=== PATIENT | male | born 1935 | race Caucasian/White ===

== ENCOUNTER 2016-12-11 14:31 | Emergency (ER) | payer MEDICARE, BC ==
--- NOTE | 2016-12-11 15:45 | EDM.PDOC ---
ED HPI Trauma - General Chief Complaint: Trauma Stated Complaint: FELL Time Seen by Provider: 12/11/16 14:55 Source: Reports: Patient, EMS History Limitations: Reports: No limitations - History of Present Illness INITIAL COMMENTS - FREE TEXT/NARRATIVE: 81-year-old male stumbled out of his pickup onto the ground and hit the back of his head. He woke up on the floor the garage, definitely losing consciousness for a short period of time. He has swelling on the back of his head but no headache, denies visual disturbance but he did vomit once. EMS was called and concerned about very small pupils but symmetric, neurologically he was intact and visiting in his vitals were stable. Occurred When: just prior to arrival Occurred Where: home Method of Injury: direct blow Severity: mild Pain/Injury Location: Reports: head Consciousness: Reports: unsure (Believe he lost consciousness for at least a couple minutes) Associated Symptoms: Reports: other (Vomited once). Denies: neck pain Allergies/ADRs: Allergies No Known Allergies Allergy (Verified 10/06/16 16:26) Home Medications: Ambulatory Orders Finasteride 5 mg PO DAILY 08/05/16 [Confirmed 12/11/16] Metoprolol Succinate [Toprol XL 100mg] 100 mg PO BID 08/05/16 [Confirmed ] Simvastatin [Zocor] 20 mg PO BEDTIME 08/05/16 [Confirmed 12/11/16] Tamsulosin [Flomax] 0.4 mg PO DAILY 08/05/16 [Confirmed 12/11/16] Warfarin Sodium 5 mg PO DAILY 08/05/16 [Confirmed 12/11/16] amLODIPine Besylate [Amlodipine Besylate] 5 mg PO DAILY 08/05/16 [Confirmed ] metFORMIN [Glucophage XR] 500 mg PO DAILY 08/05/16 [Confirmed 12/11/16] Tolterodine Tartrate [Detrol LA] 4 mg PO DAILY 08/22/16 [Confirmed 12/11/16] Warfarin [Coumadin] 2.5 mg PO DAILY 08/22/16 [Confirmed 12/11/16] Losartan [Cozaar] 100 mg PO DAILY 09/29/16 [Confirmed 12/11/16] Spironolactone 50 mg PO DAILY 10/03/16 [Confirmed 12/11/16] Past Medical History HEENT History: Reports: Hard of hearing, Impaired vision Cardiovascular History: Reports: High cholesterol, Hypertension Respiratory History: Reports: None Gastrointestinal History: Reports: Cirrhosis, Other (see below) Other Gastrointestinal History: recent ascites Musculoskeletal History: Reports: Amputation Neurological History: Reports: Concussion, CVA Endocrine/Metabolic History: Reports: Diabetes, type II, Obesity/BMI 30+ Oncologic (Cancer) History: Reports: Other (see below) Other Oncologic History: oral Dermatologic History: Reports: Other (see below) Other Dermatologic History: skin ca - Infectious Disease History Infectious Disease History: Reports: Chicken pox, Measles, Mumps - Past Surgical History Head Surgeries/Procedures: Reports: None HEENT Surgical History: Reports: Adenoidectomy, Tonsillectomy, Other (see below) Other HEENT Surgeries/Procedures: growth off lower lip ? CA Respiratory Surgical History: Reports: Lung Biopsies GI Surgical History: Reports: Abdominal paracentesis, Colonoscopy Musculoskeletal Surgical History: Reports: Amputation Other Musculoskeletal Surgeries/Procedures:: toes right foot Dermatological Surgical History: Reports: Skin biopsy Social & Family History - Family History Endocrine/Metabolic: Reports: Diabetes, type II - Tobacco Use Smoking Status *Q: Never Smoker Second Hand Smoke Exposure: No - Caffeine Use Caffeine Use: Reports: Coffee Other Caffeine Use: 1cup a day Caffeine Use Comment: 1 cup per day - Alcohol Use Days Per Week of Alcohol Use: 2 Number of Drinks Per Day: 3 Total Drinks Per Week: 6 - Recreational Drug Use Recreational Drug Use: No Review of Systems - Review of Systems Review Of Systems: See Below Constitutional: Denies: fever Ears: Reports: no symptoms Respiratory: Reports: no symptoms Cardiovascular: Reports: no symptoms Musculoskeletal: Reports: no symptoms Neurological: Reports: dizziness (Patient has been treated for persistent dizziness with some recent medication adjustments) Psychiatric: Reports: no symptoms ED EXAM, TRAUMA (MAJOR/MULTI) - Physical Exam Exam: See Below Exam Limited By: No limitations General Appearance: alert, no apparent distress Head: other (Patient has a hematoma on the posterior occipital aspect of the scalp, no active bleeding or laceration. EOMs are intact and neck is nontender) Eyes: bilateral eye: EOMI, PERRL Neck: non-tender Respiratory/Chest: no respiratory distress Extremities: no evidence of injury Neurologic: normal mood/affect, oriented x 3 Course - Vital Signs Last Recorded V/S: Last Vital Signs Temp 98.1 F 12/11/16 15:00 Pulse 113 H 12/11/16 15:36 Resp 14 12/11/16 15:00 BP 92/74 12/11/16 15:36 Pulse Ox 96 12/11/16 14:52 - Orders/Labs/Meds Orders: Active Orders 24 hr Category Date Time Status Head wo Cont [CT] Stat Exams 12/11/16 14:36 Taken - Re-Assessments/Exams Free Text/Narrative Re-Assessment/Exam: 12/11/16 15:[address] of the head was obtained due to the patient's age, loss of consciousness and Coumadin treatment. A superficial hematoma were shown but no other acute findings. The patient remained asymptomatic, talkative and had no further nausea or other complaints. He was discharged with a diagnosis of the scalp hematoma, a closed head injury with concussion. Departure - Departure Time of Disposition: 16:04 Disposition: Home, Self-Care 01 Condition: good Clinical Impression: Traumatic hematoma of scalp Qualifiers: Encounter type: initial encounter Qualified Code(s): S00.03XA - Contusion of scalp, initial encounter Concussion Qualifiers: Encounter type: initial encounter Loss of consciousness presence/duration: with LOC of 30 min or less Qualified Code(s): S06.0X1A - Concussion with loss of consciousness of 30 minutes or less, initial encounter Instructions: Concussion, Adult, Concussion, Adult, [id number] Referrals: PCP,None [Primary Care Provider] - Forms: ED Department Discharge Care Plan Goals: Try to stay active, ice to any sore areas for the next 48 hours may help and Tylenol or naproxen such as Aleve will help the soreness for the next few days. Recheck in 4 or 5 days if you do not feel you are healing satisfactorily. Return sooner at any time if you develop other concerns. - My Orders Last 24 Hours: My Active Orders 12/11/16 14:36 Head wo Cont [CT] Stat - Assessment/Plan Last 24 Hours: My Active Orders 12/11/16 14:36 Head wo Cont [CT] Stat
[2016-12-11 16:10] VITALS: BP 92/74
== END 2016-12-11 16:04 | disposition home or self-care (01) ==
LOC: JP.ED 14:31
DX: S00.03XA Contusion of scalp, initial encounter (principal); S06.0X1A Concussion with loss of consciousness of 30 minutes or less, initial encounter; I10 Essential (primary) hypertension; E78.00 Pure hypercholesterolemia, unspecified; E11.9 Type 2 diabetes mellitus without complications; E66.9 Obesity, unspecified; Z68.35 Body mass index [BMI] 35.0-35.9, adult; Z79.01 Long term (current) use of anticoagulants; Z79.899 Other long term (current) drug therapy; W01.10XA Fall on same level from slipping, tripping and stumbling with subsequent striking against unspecified object, initial encounter
CPT/HCPCS: 70450; 99283; 99285-25

== ENCOUNTER 2017-02-03 18:28 | Emergency (ER) | payer MEDICARE, BC ==
[2017-02-03 19:00] VITALS: BP 119/60
--- NOTE | 2017-02-03 19:36 | EDM.PDOC ---
[id number] 4d ILLNESS Time Seen by Provider: 02/03/17 19:35 Source of Information: Reports: Patient, Family History Limitations: Reports: No limitations - History of Present Illness INITIAL COMMENTS - FREE TEXT/NARRATIVE: pt arrived with marked leakage from his rt abdoman where fluid was drained on the . He has a history of alcoholic cirrohosis of the liver. Onset: today Duration: Hour(s):, Heavy Location: Reports: abdomen Associated Symptoms: Reports: denies other symptoms - Related Data Allergies Allergy/AdvReac Type Severity Reaction Status Date / Time No Known Allergies Allergy Verified 02/03/17 18:58 Home Meds: Home Meds Finasteride 5 mg PO DAILY 08/05/16 [History] Metoprolol Succinate [Toprol XL 100mg] 100 mg PO BID 08/05/16 [History] Simvastatin [Zocor] 20 mg PO BEDTIME 08/05/16 [History] Tamsulosin [Flomax] 0.4 mg PO DAILY 08/05/16 [History] Warfarin Sodium 5 mg PO SA 08/05/16 [History] metFORMIN [Glucophage XR] 500 mg PO DAILY 08/05/16 [History] Tolterodine Tartrate [Detrol LA] 4 mg PO DAILY 08/22/16 [History] Warfarin [Coumadin] 2.5 mg PO SUMOTUWETHFR 08/22/16 [History] Meclizine [Antivert] 12.5 mg PO TID 12/22/16 [History] Gluc HCl/Csa/Nichelle Hy/Hyalur Ac [Glucosamine Chondroitin] 1 tab PO DAILY [History] Past Medical History HEENT History: Reports: Hard of hearing, Impaired vision Cardiovascular History: Reports: High cholesterol, Hypertension Respiratory History: Reports: None Gastrointestinal History: Reports: Cirrhosis, Other (see below) Other Gastrointestinal History: recent ascites Genitourinary History: Reports: Prostate disorder Musculoskeletal History: Reports: Amputation Neurological History: Reports: Concussion, CVA Endocrine/Metabolic History: Reports: Diabetes, type II, Obesity/BMI 30+ Hematologic History: Reports: Anticoagulation therapy Oncologic (Cancer) History: Reports: Other (see below) Other Oncologic History: oral Dermatologic History: Reports: Other (see below) Other Dermatologic History: skin ca - Infectious Disease History Infectious Disease History: Reports: Chicken pox, Influenza, Measles, Mumps - Past Surgical History Head Surgeries/Procedures: Reports: None HEENT Surgical History: Reports: Adenoidectomy, Tonsillectomy, Other (see below) Other HEENT Surgeries/Procedures: growth off lower lip ? CA Respiratory Surgical History: Reports: Lung Biopsies GI Surgical History: Reports: Abdominal paracentesis, Colonoscopy Neurological Surgical History: Reports: None Musculoskeletal Surgical History: Reports: Amputation Other Musculoskeletal Surgeries/Procedures:: toes right foot Oncologic Surgical History: Reports: None Dermatological Surgical History: Reports: Skin biopsy Social & Family History - Family History Endocrine/Metabolic: Reports: Diabetes, type II - Tobacco Use Smoking Status *Q: Never Smoker Second Hand Smoke Exposure: No - Caffeine Use Caffeine Use: Reports: Coffee Other Caffeine Use: 1cup a day Caffeine Use Comment: 1 cup per day - Alcohol Use Days Per Week of Alcohol Use: 2 Number of Drinks Per Day: 3 Total Drinks Per Week: 6 - Recreational Drug Use Recreational Drug Use: No ED ROS GENERAL - Review of Systems Review Of Systems: See Below Constitutional: Reports: no symptoms HEENT: Reports: No symptoms Respiratory: Reports: No Symptoms Cardiovascular: Reports: No symptoms Endocrine: Reports: no symptoms GI/Abdominal: Reports: Other (leakage from the paracentsis) : Reports: no symptoms Musculoskeletal: Reports: no symptoms Skin: Reports: no symptoms ED EXAM, GENERAL - Physical Exam Exam: See Below Free Text/Narrative:: pt arrived with marked leakage from the the parecentsis site. He is not real uncomfortable. Exam Limited By: No limitations General Appearance: alert, anxious Ears: normal TMs Nose: normal inspection Throat/Mouth: Normal inspection Head: atraumatic Neck: normal inspection Respiratory/Chest: no respiratory distress Cardiovascular: regular rate, rhythm Peripheral Pulses: 0: radial (L) GI/Abdominal: other ( abdoman distended. there is sig leakage from the site of drainage. ) Rectal (Males) Exam: Deferred Back Exam: normal inspection Extremities: pedal edema, other ( plus 2-3 efema. ) Neurological: alert, oriented, normal cognition Course - Vital Signs Last Recorded V/S: Last Vital Signs Temp 36.0 C 02/03/17 19:05 Pulse 100 02/03/17 19:05 Resp 16 02/03/17 19:05 BP 119/60 02/03/17 19:05 Pulse Ox 93 L 02/03/17 19:05 - Orders/Labs/Meds Labs: Laboratory Tests 02/03/17 02/03/17 Range/Units 19:48 19:48 WBC 5.2 (4.5-11.0) K/uL RBC 4.59 (4.30-5.90) M/uL Hgb 14.4 (12.0-15.0) g/dL Hct 43.6 (40.0-54.0) % MCV 95 (80-98) fL MCH 31 (27-31) pg MCHC 33 (32-36) % Plt Count 106 L (150-400) K/uL Neut % (Auto) 54 (36-66) % Lymph % (Auto) 29 (24-44) % Pender % (Auto) 15 H (2-6) % Eos % (Auto) 2 (2-4) % Baso % (Auto) 1 (0-1) % Sodium 141 (140-148) mmol/L Potassium 5.2 (3.6-5.2) mmol/L Chloride 108 (100-108) mmol/L Carbon Dioxide 26 (21-32) mmol/L Anion Gap 7.3 (5.0-14.0) mmol/L BUN 39 H D (7-18) mg/dL Creatinine 2.0 H D (0.8-1.3) mg/dL Est Cr Clr Drug Dosing 31.79 mL/min Estimated GFR (MDRD) 32 L (>60) Glucose 152 H (74-106) mg/dL Calcium 7.7 L (8.5-10.1) mg/dL Total Bilirubin 0.5 D (0.2-1.0) mg/dL AST 66 H (15-37) U/L ALT 61 (12-78) U/L Alkaline Phosphatase 181 H (46-116) U/L Total Protein 6.0 L (6.4-8.2) g/dL Albumin 2.4 L (3.4-5.0) g/dL Globulin 3.6 H (2.3-3.5) g/dL Albumin/Globulin Ratio 0.7 L (1.2-2.2) Meds: Medications Discontinued Medications Generic Name Dose Route Start Last Admin Trade Name Freq PRN Reason Stop Dose Admin Sodium Chloride 1,000 mls @ 200 mls/hr 02/03/17 19:45 02/03/17 20:48 Normal Saline IV 200 mls/hr ASDIRECTED CALVIN Administration Lidocaine HCl 20 ml 02/03/17 20:59 02/03/17 21:05 Xylocaine 1% INJECT 02/03/17 21:00 20 ml ONETIME ONE Administration Lidocaine HCl Confirm 02/03/17 21:02 02/03/17 21:39 Xylocaine 1% Administered 02/03/17 21:03 Not Given Dose 50 ml .ROUTE .[facility] ONE - Re-Assessments/Exams Free Text/Narrative Re-Assessment/Exam: 02/03/17 21:05 pt has a elevated creaTNINE. WHICH IS NOT NEW. hE HAS MARKED LEAKAGE FROM THE SITE. dR Hines SAW THE PT AND HE PLACED A FIGURE 8 STITCH. tHE DRAINAGE WILL STOP. Departure - Departure Time of Disposition: 21:06 Disposition: Home, Self-Care 01 Condition: fair Clinical Impression: Alcoholic cirrhosis of liver with ascites Referrals: Nabor Galdamez MD [Primary Care Provider] - Forms: ED Department Discharge Care Plan Goals: APPT WITH dR Fisher AT 10 AM.
[2017-02-03] MEDS ORDERED: Sodium Chloride 0.9% 1,000 ML IV SCH (19:45)
[2017-02-03] MEDS ORDERED: Lidocaine 1% 20 ML MDV INJECT ONE (20:59)
[2017-02-03] MEDS ORDERED: Lidocaine 1% 50 ML MDV ONE (21:02)
--- NOTE | 2017-02-05 12:08 | ER ---
DATE OF SERVICE: 02/03/2017 This is an 81-year-old who yesterday underwent a paracentesis per Dr. Dumont. The patient presents to the emergency room with an ongoing leak of peritoneal fluid from the puncture site of paracentesis in the right lateral abdomen. Clinically, the fluid was clear, and he is not showing any signs of infection. After discussion of the situation, the area was prepped and draped, anesthetized with 1% lidocaine. A [id number] stitch of 3- 0 Prolene stitch was placed over the puncture site. This was then tied snugly and resulted in occlusion of the peritoneal fluid leak. Dressing was applied. The patient tolerated the procedure well. The patient will be following up with Dr. Dumont this coming Monday. The sutures will be probably be removed at that time and then discussion held regarding with possible need for further paracentesis. Beto Beard MD /[id number]
== END 2017-02-03 21:35 | disposition home or self-care (01) ==
LOC: JP.ED 18:28
DX: K70.31 Alcoholic cirrhosis of liver with ascites (principal); I10 Essential (primary) hypertension; E78.00 Pure hypercholesterolemia, unspecified; E11.9 Type 2 diabetes mellitus without complications; E66.9 Obesity, unspecified; Z68.34 Body mass index [BMI] 34.0-34.9, adult; Z85.828 Personal history of other malignant neoplasm of skin; Z89.421 Acquired absence of other right toe(s); Z98.890 Other specified postprocedural states; Z79.01 Long term (current) use of anticoagulants; Z79.899 Other long term (current) drug therapy
CPT/HCPCS: 36415; 49082; 80053; 85025; 96360; 96361; 99282; 99284; J7040

== ENCOUNTER 2017-07-20 15:59 | Emergency (ER) | payer MEDICARE, BC ==
[2017-07-20 16:09] VITALS: BP 123/82
--- NOTE | 2017-07-20 16:26 | EDM.PDOC ---
ED HPI GENERAL MEDICAL PROBLEM - General Chief Complaint: General Stated Complaint: LEAKING/PARACENTESIS Time Seen by Provider: 07/20/17 16:18 Source of Information: Reports: Patient History Limitations: Reports: No Limitations - History of Present Illness INITIAL COMMENTS - FREE TEXT/NARRATIVE: 81-year-old male with cirrhosis, ascites and recurring paracentesis procedures had a paracentesis performed earlier today. 4 hours later he still is oozing serosanguineous fluid through the suture, and the abdominal wall is leaking fairly heavily as he has had to change his sweater twice in his pants once. He otherwise feels baseline. Duration: Hour(s): (Training for 4 hours) Location: Reports: Abdomen (Paracentesis incision site) - Related Data Allergies Allergy/AdvReac Type Severity Reaction Status Date / Time No Known Allergies Allergy Verified 07/20/17 16:09 Home Meds: Home Meds Simvastatin [Zocor] 20 mg PO BEDTIME 08/05/16 [History] Warfarin Sodium 5 mg PO WESA 08/05/16 [History] metFORMIN [Glucophage XR] 500 mg PO DAILY 08/05/16 [History] Tolterodine Tartrate [Detrol LA] 4 mg PO DAILY 08/22/16 [History] Warfarin [Coumadin] 2.5 mg PO SUMOTUTHFR 08/22/16 [History] Gluc HCl/Csa/Nichelle Hy/Hyalur Ac [Glucosamine Chondroitin] 1 tab PO DAILY [History] Furosemide [Lasix] 20 mg PO DAILY 02/16/17 [History] Cyanocobalamin (Vitamin B-12) [Vitamin B12] 250 mcg PO BEDTIME 02/28/17 [History ] Folic Acid 5 mg PO DAILY 02/28/17 [History] Thiamine [Vitamin B-1] 100 mg PO BEDTIME 02/28/17 [History] Finasteride [Proscar] 5 mg PO DAILY 03/07/17 [History] Midodrine 5 mg PO TID 06/08/17 [History] Cholecalciferol (Vitamin D3) [Vitamin D3] 2,000 units PO DAILY 06/14/17 [History ] Cholestyramine/Aspartame [Questran Light Powder] 4 gm PO DAILY 07/18/17 [History ] Past Medical History HEENT History: Reports: Hard of Hearing, Impaired Vision Cardiovascular History: Reports: High Cholesterol, Hypertension Respiratory History: Reports: None Gastrointestinal History: Reports: Cirrhosis, Other (See Below) Other Gastrointestinal History: recent ascites, paracentesis Genitourinary History: Reports: Prostate Disorder Musculoskeletal History: Reports: Amputation Neurological History: Reports: Concussion, CVA Endocrine/Metabolic History: Reports: Diabetes, Type II, Obesity/BMI 30+ Hematologic History: Reports: Anticoagulation Therapy, Other (See Below) Other Hematologic History: albumin Immunologic History: Reports: None Oncologic (Cancer) History: Reports: Other (See Below) Other Oncologic History: oral Dermatologic History: Reports: Other (See Below) Other Dermatologic History: skin ca - Infectious Disease History Infectious Disease History: Reports: Chicken Pox - Past Surgical History HEENT Surgical History: Reports: Adenoidectomy, Tonsillectomy, Other (See Below) Cardiovascular Surgical History: Reports: None Respiratory Surgical History: Reports: Lung Biopsies GI Surgical History: Reports: Other (See Below) Other GI Surgeries/Procedures: paracentesis Musculoskeletal Surgical History: Reports: Amputation Other Musculoskeletal Surgeries/Procedures:: toes right foot Dermatological Surgical History: Reports: Skin Biopsy Social & Family History - Family History Family Medical History: Noncontributory Endocrine/Metabolic: Reports: Diabetes, type II - Tobacco Use Smoking Status *Q: Never Smoker Second Hand Smoke Exposure: No - Caffeine Use Caffeine Use: Reports: Coffee Other Caffeine Use: 1cup a day Caffeine Use Comment: 1 cup per day - Alcohol Use Days Per Week of Alcohol Use: 2 Number of Drinks Per Day: 3 Total Drinks Per Week: 6 - Recreational Drug Use Recreational Drug Use: No ED ROS GENERAL - Review of Systems Review Of Systems: See Below Constitutional: Denies: Fever, Chills Respiratory: Denies: Shortness of Breath Cardiovascular: Denies: Chest Pain GI/Abdominal: Denies: Abdominal Pain, Nausea, Vomiting Skin: Reports: Bruising (Bruises easily) ED EXAM, GENERAL - Physical Exam Exam: See Below Exam Limited By: No Limitations General Appearance: Alert, No Apparent Distress Respiratory/Chest: No Respiratory Distress GI/Abdominal: Soft, Non-Tender, Other (The paracentesis suture does have a very small amount of serosanguineous drainage through the upper suture) Course - Vital Signs Last Recorded V/S: Last Vital Signs Temp 95.5 F 07/20/17 16:06 Pulse 122 H 07/20/17 16:06 Resp 14 07/20/17 16:06 BP 123/82 07/20/17 16:06 Pulse Ox 99 07/20/17 16:06 - Orders/Labs/Meds Meds: Medications Discontinued Medications Generic Name Dose Route Start Last Admin Trade Name Demario PRN Reason Stop Dose Admin Lidocaine HCl 5 ml 07/20/17 16:22 07/20/17 16:26 Xylocaine-Mpf 1% INJECT 07/20/17 16:23 5 ml ONETIME ONE Administration - Re-Assessments/Exams Free Text/Narrative Re-Assessment/Exam: 07/20/17 16:28 Dr. Dumont, who did the procedure was contacted and he kindly offered to come and see the patient. 07/20/17 16:54 Dr. Dumont performed a small procedure involving sutures including and stopped the leaking. Patient was discharged after the wound was redressed. Departure - Departure Time of Disposition: 17:10 Disposition: Home, Self-Care 01 Condition: Good Clinical Impression: Complication, postoperative Qualifiers: Surgical complication system/body Area: digestive system Surgical complication type: other Qualified Code(s): K91.89 - Other postprocedural complications and disorders of digestive system - Discharge Information Instructions: Tissue Adhesive Wound Care Referrals: Nabor Galdamez MD [Primary Care Provider] - Forms: ED Department Discharge Care Plan Goals: Continue current medications and activity as tolerated. Return any time if worsening or concerns.
== END 2017-07-20 17:10 | disposition home or self-care (01) ==
LOC: JP.ED 15:59
DX: K91.89 Other postprocedural complications and disorders of digestive system (principal); E66.9 Obesity, unspecified; E78.00 Pure hypercholesterolemia, unspecified; I10 Essential (primary) hypertension; Z79.899 Other long term (current) drug therapy; Z79.84 Long term (current) use of oral hypoglycemic drugs; Z98.890 Other specified postprocedural states; Z86.73 Personal history of transient ischemic attack (TIA), and cerebral infarction without residual deficits; R18.8 Other ascites
CPT/HCPCS: 49083; 99283; J7040; P9047

== ENCOUNTER 2017-08-31 14:12 | Emergency (ER) | payer MEDICARE, BC ==
--- NOTE | 2017-08-31 15:33 | EDM.PDOC ---
ED HPI GENERAL MEDICAL PROBLEM - General Chief Complaint: General Stated Complaint: CRITICAL LAB FROM THE CLINIC Time Seen by Provider: 08/31/17 15:00 Source of Information: Reports: Patient History Limitations: Reports: No Limitations - History of Present Illness INITIAL COMMENTS - FREE TEXT/NARRATIVE: pt arrived with a history of stage 3 kidney disease. He was not feeling any different today. He saw nephrology today and was found to have a k of 6.5. He did have a difficult draw. He was redrawn and his k was 5.9 and his creatnine was 3.1. Onset: Gradual Duration: Week(s): Location: Reports: Other ( stage 3 kidney disease. ) Associated Symptoms: Reports: Other ( no new symptoms. ) Denies Pain Score (Numeric/FACES): 0 - Related Data Allergies Allergy/AdvReac Type Severity Reaction Status Date / Time No Known Allergies Allergy Verified 08/31/17 14:33 Home Meds: Home Meds Simvastatin [Zocor] 20 mg PO BEDTIME 08/05/16 [History] Warfarin Sodium 5 mg PO ASDIRECTED 08/05/16 [History] metFORMIN [Glucophage XR] 500 mg PO DAILY 08/05/16 [History] Tolterodine Tartrate [Detrol LA] 4 mg PO DAILY 08/22/16 [History] Warfarin [Coumadin] 2.5 mg PO ASDIRECTED 08/22/16 [History] Furosemide [Lasix] 20 mg PO DAILY 02/16/17 [History] Cyanocobalamin (Vitamin B-12) [Vitamin B12] 250 mcg PO DAILY 02/28/17 [History] Folic Acid 5 mg PO DAILY 02/28/17 [History] Thiamine [Vitamin B-1] 100 mg PO DAILY 02/28/17 [History] Finasteride [Proscar] 5 mg PO DAILY 03/07/17 [History] Midodrine 5 mg PO TID 06/08/17 [History] Cholecalciferol (Vitamin D3) [Vitamin D3] 2,000 units PO DAILY 06/14/17 [History ] Cholestyramine/Aspartame [Questran Light Powder] 4 gm PO DAILY 07/18/17 [History ] Past Medical History HEENT History: Reports: Hard of Hearing, Impaired Vision Cardiovascular History: Reports: High Cholesterol, Hypertension Respiratory History: Reports: None Gastrointestinal History: Reports: Cirrhosis, Other (See Below) Other Gastrointestinal History: recent ascites, paracentesis Genitourinary History: Reports: Prostate Disorder Musculoskeletal History: Reports: Amputation Neurological History: Reports: Concussion, CVA Endocrine/Metabolic History: Reports: Diabetes, Type II, Obesity/BMI 30+ Hematologic History: Reports: Anticoagulation Therapy, Other (See Below) Other Hematologic History: albumin Immunologic History: Reports: None Oncologic (Cancer) History: Reports: Other (See Below) Other Oncologic History: oral Dermatologic History: Reports: Other (See Below) Other Dermatologic History: skin ca - Infectious Disease History Infectious Disease History: Reports: Chicken Pox, Measles, Mumps - Past Surgical History Head Surgeries/Procedures: Reports: None HEENT Surgical History: Reports: Adenoidectomy, Tonsillectomy, Other (See Below) Cardiovascular Surgical History: Reports: None Respiratory Surgical History: Reports: Lung Biopsies GI Surgical History: Reports: Other (See Below) Other GI Surgeries/Procedures: paracentesis Musculoskeletal Surgical History: Reports: Amputation Other Musculoskeletal Surgeries/Procedures:: toes right foot Dermatological Surgical History: Reports: Skin Biopsy Social & Family History - Family History Family Medical History: Noncontributory Endocrine/Metabolic: Reports: Diabetes, type II - Tobacco Use Smoking Status *Q: Never Smoker Second Hand Smoke Exposure: No - Caffeine Use Caffeine Use: Reports: Coffee Other Caffeine Use: 1cup a day Caffeine Use Comment: 1 cup per day - Alcohol Use Days Per Week of Alcohol Use: 2 Number of Drinks Per Day: 3 Total Drinks Per Week: 6 - Recreational Drug Use Recreational Drug Use: No ED ROS GENERAL - Review of Systems Review Of Systems: See Below Constitutional: Reports: No Symptoms HEENT: Reports: No Symptoms Respiratory: Reports: No Symptoms Cardiovascular: Reports: No Symptoms Endocrine: Reports: No Symptoms GI/Abdominal: Reports: Other ( abdoman is not real tight.) : Reports: No Symptoms Skin: Reports: No Symptoms Neurological: Reports: No Symptoms ED EXAM, GENERAL - Physical Exam Exam: See Below Free Text/Narrative:: pt arrived with a k of 6.5. He was a difficult draw at the clinic. He was redrawn and his k was 5.9. His creatnine was 3.1. Exam Limited By: No Limitations General Appearance: Alert, No Apparent Distress Ears: Normal TMs Nose: Normal Inspection Throat/Mouth: Normal Inspection Head: Atraumatic Neck: Normal Inspection Respiratory/Chest: No Respiratory Distress Cardiovascular: Irregularly Irregular, Other (pt has a history of atrial fib. ) GI/Abdominal: Distended, Other ( Pt has acetes and is tapped on a regular basis) (Male) Exam: Deferred Back Exam: Normal Inspection Extremities: Normal Inspection, Pedal Edema Neurological: Alert, Other (pt has dementia) Course - Vital Signs Last Recorded V/S: Last Vital Signs Temp 34.5 C L 08/31/17 14:52 Pulse 111 H 08/31/17 16:10 Resp 16 08/31/17 16:10 BP 109/85 08/31/17 16:10 Pulse Ox 95 08/31/17 16:10 - Orders/Labs/Meds Orders: Active Orders 24 hr Category Date Time Status EKG Documentation Completion [RC] ASDIRECTED Care 08/31/17 16:14 Active EKG 12 Lead [EK] Routine Ther 08/31/17 16:14 Ordered Labs: Laboratory Tests 08/31/17 Range/Units 15:35 Sodium 137 L (140-148) mmol/L Potassium 5.9 H (3.6-5.2) mmol/L Chloride 105 (100-108) mmol/L Carbon Dioxide 24 (21-32) mmol/L Anion Gap 13.9 (5.0-14.0) mmol/L BUN 67 H D (7-18) mg/dL Creatinine 3.1 H D (0.8-1.3) mg/dL Est Cr Clr Drug Dosing 20.51 mL/min Estimated GFR (MDRD) 19 L (>60) Glucose 125 H (74-106) mg/dL Calcium 8.5 (8.5-10.1) mg/dL Meds: Medications Discontinued Medications Generic Name Dose Route Start Last Admin Trade Name Freq PRN Reason Stop Dose Admin Sodium Polystyrene Sulfonate 30 gm 08/31/17 16:14 Kayexalate PO 08/31/17 16:15 ONETIME ONE - Re-Assessments/Exams Free Text/Narrative Re-Assessment/Exam: 08/31/17 16:29 Pt was given kexulate 30 mg . an ekg was obtained. This did not show high peaked t waves. Departure - Departure Time of Disposition: 16:20 Disposition: Home, Self-Care 01 Condition: Fair Clinical Impression: Hyperkalemia, Atrial fibrillation, Stage 3 chronic kidney disease - Discharge Information Referrals: Nabor Galdaemz MD [Primary Care Provider] - Forms: ED Department Discharge Care Plan Goals: pt was given kexylate in Er. Return in the am to have k rechecked. Er Dr is to look at the value. encourage fluids tonight, low k diet. - My Orders Last 24 Hours: My Active Orders 08/31/17 16:14 EKG Documentation Completion [RC] ASDIRECTED EKG 12 Lead [EK] Routine - Assessment/Plan Last 24 Hours: My Active Orders 08/31/17 16:14 EKG Documentation Completion [RC] ASDIRECTED EKG 12 Lead [EK] Routine
[2017-08-31] MEDS ORDERED: Sodium Polystyrene Sulfonate 15 GM/60 ML Susp 60 ML Bot PO ONE (16:14)
[2017-08-31 17:06] VITALS: BP 99/77
--- NOTE | 2017-09-01 10:23 | PCM.SN ---
- Free Text/Narrative Note: Repeat lab work today potassium is down from 5.9-4.4 reviewed the rest results with him plan is to follow-up with nephrology for further direction and treatment also discussed his elevated creatinine and worsening renal failure in conjunction with liver failure
== END 2017-08-31 17:10 | disposition home or self-care (01) ==
LOC: JP.ED 14:12
DX: I12.9 Hypertensive chronic kidney disease with stage 1 through stage 4 chronic kidney disease, or unspecified chronic kidney disease (principal); E11.22 Type 2 diabetes mellitus with diabetic chronic kidney disease; N18.3 Chronic kidney disease, stage 3 (moderate); E87.5 Hyperkalemia; I48.91 Unspecified atrial fibrillation; E66.9 Obesity, unspecified; Z79.01 Long term (current) use of anticoagulants; Z79.899 Other long term (current) drug therapy
CPT/HCPCS: 36415; 80048; 93005; 99285; A9270; 93010; 99284